=== PATIENT | female | born 1990 | race Two or more races ===

== ENCOUNTER 2019-07-19 12:23 | Emergency (ER) | payer OTHER ==
[~2019-07-19] VITALS: Ht 167.6 cm; Wt 59.9 kg
[2019-07-19 13:51] LABS: BASOPHILS # (AUTO) 0.1 /CMM (0.0-0.2); EOSINOPHILS % (AUTO) 1.9 % (0.0-6.0); HEMATOCRIT 39 % (33-45); HEMOGLOBIN 12.9 g/dL (11.5-14.8); LYMPHOCYTES # (AUTO) 2.3 /CMM (0.8-4.8); MEAN CORPUSCULAR HGB CONC 33 g/dl (31.0-36.0); MEAN CORPUSCULAR VOLUME 92 fL (82-100); MONOCYTES # (AUTO) 0.2 /CMM (0.1-1.30); MONOCYTES % (AUTO) 3.4 % (2.0-12.0); NEUTROPHILS % (AUTO) 52.7 % (43.0-81.0); PLATELET COUNT (AUTO) 241 /CMM (150-450); RED BLOOD CELL COUNT(AUTO) 4.25 MIL/uL (4.0-5.2); WHITE BLOOD COUNT (AUTO) 5.7 K/uL (4.3-11.0)
[2019-07-19 13:53] LABS: APPEARANCE,URINE Clear (CLEAR); BILIRUBIN,URINE Negative (NEGATIVE); BLOOD, URINE Small Ery/uL (NEGATIVE); COLOR,URINE Yellow (YELLOW); KETONES,URINE Negative (NEGATIVE); LEUKOCYTE ESTERASE ,URINE Negative (NEGATIVE); NITRITE, URINE Negative (NEGATIVE); PROTEIN,URINE Negative (NEGATIVE); UGLUCOSE Negative (NEGATIVE); UROBILINOGEN,URINE 0.2 EU/dL (0.2)
[2019-07-19 14:16] LABS: BACTERIA,URINE Few /HPF (None Seen); SQUAMOUS EPITHELIAL CELL,UR Few /HPF (None Seen); WBC,URINE 0-2 /HPF (0-3)
[2019-07-19 14:20] LABS: CALCIUM, SERUM 7.8 mg/dL (8.5-10.1); CREATININE 0.5 mg/dL (0.6-1.3)
[2019-07-19 14:28] LABS: ALBUMIN 3.7 g/dL (3.4-5.0); BILIRUBIN,DIRECT 0.1 mg/dL (0.0-0.2); BILIRUBIN,TOTAL 0.3 mg/dL (0.2-1.0); SALICYLATE 0.6 mg/dL (2.8-20.0); TOTAL PROTEIN, SERUM 6.9 g/dL (6.4-8.2)
--- NOTE | 2019-07-19 14:44 | NUR ---
TOOK OVER PATIENT CARE. pt chance, picked up from one of the building, etoh, found alcoholcans beside. pt is asleep a the moment. vitals strable. no acute distress noted.
--- NOTE | 2019-07-19 15:53 | NUR ---
Patient is asleep. vss. easily aroused
--- NOTE | 2019-07-19 16:48 | NUR ---
patinet is awake. watching tv.
[2019-07-19] MEDS ORDERED: IV NS 0.9% 1,000 ML BAG IV ONE (17:30)
--- NOTE | 2019-07-19 17:48 | NUR ---
Patient is easily aroused. watching tv. vss.
--- NOTE | 2019-07-19 18:12 | NUR ---
[employer] Cutter at bedside
[2019-07-19 18:34] LABS: CALCIUM, SERUM 7.3 mg/dL (8.5-10.1); CREATININE 0.6 mg/dL (0.6-1.3); POTASSIUM 3.6 mmol/L (3.5-5.1)
--- NOTE | 2019-07-19 18:35 | NUR ---
Per patient "I have suicidal thoughts, I want to harm myself but I don't have a plan at the moment." Patient denies HI. PT showed old cuts on left wrist and stated how she tried killing herself before.
--- NOTE | 2019-07-19 18:44 | NUR ---
PT BELONINGS REMOVED AND PLACED IN LOCKER.
--- NOTE | 2019-07-19 18:44 | NUR ---
SECURITY CALLED FOR WANDING
--- NOTE | 2019-07-19 19:16 | NUR ---
PT PULLED OUT HER IV. VSS.
--- NOTE | 2019-07-19 19:27 | NUR ---
PATIENT RESTING COMFORTABLY. VSS. SITTER AT BEDSIDE
[2019-07-19] MEDS ORDERED: IBUPROFEN 600 MG TABLET PO ONE ×2 (19:56→20:00)
--- NOTE | 2019-07-19 20:11 | NUR ---
PT RESTING COMFORTABLY. WATCHING TV
--- NOTE | 2019-07-19 21:11 | NUR ---
PT resting comfortably. Easily aroused
--- NOTE | 2019-07-19 21:54 | NUR ---
Pt awake drinking water. Denies having any suicidal thoughts
--- NOTE | 2019-07-19 22:24 | NUR ---
Patient discharged to home in stable condition. Written and verbal after care instructions given. Patient verbalizes understanding of instruction. Patient denies suicidal thoughts, -SI,-HI. pt ambulatory with a steady gait. VSS.
[2019-07-19 22:33] VITALS: BP 114/54
== END 2019-07-19 22:36 | disposition home or self-care (01) ==
LOC: ER 12:26
DX: F10.129 Alcohol abuse with intoxication, unspecified (principal); R45.851 Suicidal ideations; R94.31 Abnormal electrocardiogram [ECG] [EKG]; R51 Headache; Y90.8 Blood alcohol level of 240 mg/100 ml or more
CPT/HCPCS: 36415; 70450; 80048 ×2; 80076; 80305; 80307 ×2; 80329; 81001; 84703; 85025; 93005; 99284; G0480; J7030; 81000-TC